=== PATIENT | female | born 1995 | race Caucasian/White ===

== ENCOUNTER 2017-04-21 21:10 | Emergency (ER) | payer OTHER ==
[~2017-04-21] VITALS: Ht 165.1 cm; Wt 101.6 kg
[~2017-04-21 21:10] MED LIST: AMOXIL400 MG/5 M PO; BACTRIM DS1 TAB PO; BENADRYL25 M2; GARDASIL IM; HAVRIX720 UNI1 IM; MENACTRA PO; MUCINEX600 MG; NO HOME MEDS; NYQUIL COLD & FLU; OMNICEF250 MG/5 M PO; ROBITUSS20; SUDAFED; dayquil
[2017-04-21 23:10] VITALS: BP 128/68
== END 2017-04-21 23:10 | disposition home or self-care (01) | DRG 880 ==
LOC: ED 21:10
DX: F41.9 Anxiety disorder, unspecified (principal)

== ENCOUNTER 2018-05-04 12:58 | Emergency (ER) | payer OTHER ==
[~2018-05-04] VITALS: Ht 165.1 cm; Wt 108.0 kg
[2018-05-04 13:57] LABS: HEMATOCRIT 33.9 % (37.0-47.0); IMMATURE GRANULOCYTES 0.5 % (0.0-5.0); MEAN CORPUSCULAR HGB 22.7 pG CALC (26.0-32.0); MEAN CORPUSCULAR HGB CONC 30.4 g/L CALC (32.0-36.0); NEUT# 5.85 thou/uL (2.00-7.15); RED BLOOD COUNT 4.53 mill/uL (4.20-5.60); RED CELL DISTRI WIDTH 15.7 % (11.5-15.5)
[2018-05-04 14:01] LABS: HEMOGLOBIN 10.3 g/dl (12.0-16.0); MEAN CELL VOLUME 74.8 fL CALC (80.0-100.0)
[2018-05-04 14:10] LABS: ANION GAP 14 (6-22 (CALC)); BUN 11 mg/dL (7-17); BUN/CREATININE RATIO 16 (12-20 (CALC)); CARBON DIOXIDE 24 mmol/l (22-30); CHLORIDE 105 mmol/l (95-108); CREATININE 0.7 mg/dL (0.5-1.0); GFR > 60 ML/MIN (>=60 (CALC)); GFR FOR AFR.AMER. > 60 ML/MIN (>=60 (CALC)); SODIUM 139 mmol/l (137-146)
[2018-05-04 15:24] VITALS: BP 126/76
== END 2018-05-04 15:24 | disposition home or self-care (01) | DRG 313 ==
LOC: ED 12:58
PROVIDERS: Family Medicine
DX: R07.9 Chest pain, unspecified (principal); R00.2 Palpitations